=== PATIENT | female | born 1930 | race Caucasian/White ===

== ENCOUNTER 2017-08-07 18:58 | Emergency (ER) ==
[2017-08-07] MEDS ORDERED: TYLENOL PO STA (19:12)
--- NOTE | 2017-08-07 19:15 | ED.PDOC ---
General ED Provider: Dr. JUSTIN PEÑA Chief Complaint: Fall Stated Complaint: Patient is an 86 year old who states she fell on gravel driveway. She hit left side of forehead/eye on driveway. Denies any loss of conciousness. Has ozzing of blood from the forehead which does not stop bleeding after pressure.She is on coumadin. Also complains of pain to both shoulders, left worse than right. Time Seen by Physician: 19:13 Mode of Arrival: Wheelchair Information Source: Patient Exam Limitations: No limitations Nursing and Triage Documentation Reviewed and Agree: Yes Review of Systems - Review Of Systems Constitutional: Reports: No symptoms Respiratory: Reports: No symptoms Cardiac: Reports: No symptoms GI: Reports: No symptoms : Reports: No symptoms Musculoskeletal: Reports: Joint pain Skin: Reports: Bruising Neurological: Reports: Anxiety All Other Systems: Reviewed and Negative Past Medical History - Past Medical History Endocrine: Reports: Dyslipidemia Cardiovascular: Reports: Hypertension Respiratory: Reports: COPD Hematological: Reports: None Gastrointestinal: Reports: None Genitourinary: Reports: None Neuro/Psych: Reports: None Musculoskeletal: Reports: Arthritis 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 Last Menstrual Period: post menopausal Other Pertinent Past Medical History: 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 - Surgical History General Surgical History: Reports: Orthopedic (Bilateral ankle surgery.), Other (Left) - Family History Family History: Reports: Unknown - Social History Smoking Status: Never smoker Hx Substance Use: No Alcohol Screening: None - Immunizations Tetanus Shot up to Date: Yes Physical Exam - Physical Exam Appearance: Ill-appearing Pain Distress: Moderate Eyes: TERI ENT: Ears normal, Nose normal, Oropharynx normal Neck: Supple Respiratory: Airway patent, Breath sounds clear, Breath sounds equal, Respirations nonlabored Cardiovascular: RRR, Pulses normal, No rub, No murmur GI/: Soft, Nontender, No masses, Bowel sounds normal, No Organomegaly Musculoskeletal: Limited ROM (Left shoulder due to pain ) Skin: Warm, Dry Neurological: Sensation intact Psychiatric: Anxious Interpretation - Radiology Interpretation Radiology Interpretation By: Radiologist Radiology Results: Positive (Bilateral rib fractures.) Exam Interpreted: CT Scan Radiology Interpretation By: Radiologist Radiology Results: Positive Exam Interpreted: Other (mildly displaced distal clavicular fracture) Procedures - Laceration/Wound Repair Left Reading Wound Description: Irregular Wound Length (cm): 2 cm Wound Width: 0.2 Wound Depth: 0.5 Wound Explored: Clean Wound Prep: Hibiclens Anesthesia: Lidocaine Wound Debrided: Minimal Undermining: Minimal Wound Margins: Flaps aligned Wound Repaired With: Sutures (5) Suture Size and Type: 5.0 prolene Number of Sutures: 5 Left Forhead Wound Description: Skin tear Wound Length (cm): 0.5 Wound Explored: Clean Wound Repaired With: Steri-strips Critical Care Note - Critical Care Note Total Time (mins): 0 Course - Course Orders, Labs, Meds: Lab Review 08/07/17 19:16 PT 22.2 H INR 2.23 Orders Category Date Time Status Shoulder immobilizer [ED SPLINT APPLICATION] .ONCE EMERGENCY 08/07/17 22:06 Active PT WITH INR Stat LAB 08/07/17 19:16 Completed Acetaminophen [Tylenol] MEDS 08/07/17 19:12 Discontinued 1,000 mg PO ONCE STA Diphth,Pertuss(Acell),Tet Vac [Boostrix] MEDS 08/07/17 20:52 Discontinued 0.5 ml IM .ONCE ONE Ed After Hour Supply Med [Ed After Hours Supply Med MEDS 08/07/17 21:55 Discontinued Sent Home] 1 each PO ONCE ONE Hydrocodone Bit/Acetaminophen [[place] 5-325] MEDS 08/07/17 22:00 Discontinued 2 tab .ROUTE .STK-MED ONE Lidocaine HCl/Pf [Lidocaine HCl 1% Sdv] MEDS 08/07/17 20:27 Discontinued 5 ml .ROUTE .STK-MED ONE Lidocaine HCl/Pf [Lidocaine HCl 1% Sdv] MEDS 08/07/17 20:26 Discontinued 5 ml SUBCUT ONCE STA Tetanus, Diphtheria Tox,Adult [Tetanus Diphtheria MEDS 08/07/17 20:49 Discontinued Toxoids] 0.5 ml IM .ONCE ONE CT CERVICAL SPINE W/O CONTRAST Stat RADS 08/07/17 19:[address] CHEST W/O CONTRAST Stat RADS 08/07/17 19:[address] HEAD W/O CONTRAST Stat RADS 08/07/17 19:[address] MAXILLOFACIAL W/O CONTRAST Stat RADS 08/07/17 19:12 Completed SHOULDER, LEFT MIN 2V Routine RADS 08/07/17 19:36 Completed SHOULDER, RIGHT MIN 2V Routine RADS 08/07/17 19:36 Completed Medications Discontinued Medications Generic Name Dose Route Start Last Admin Trade Name Freq PRN Reason Stop Dose Admin Acetaminophen 1,000 mg 08/07/17 19:12 08/07/17 20:10 Tylenol PO 08/07/17 19:13 1,000 mg ONCE STA Administration Diphtheria/Pertussis/Tetanus Vacc 0.5 ml 08/07/17 20:52 08/07/17 21:01 Boostrix IM 08/07/17 20:53 0.5 ml .ONCE ONE Administration Lidocaine HCl 5 ml 08/07/17 20:26 08/07/17 20:40 Lidocaine Hcl 1% Sdv SUBCUT 08/07/17 20:27 5 ml ONCE STA Administration Miscellaneous Information 1 each 08/07/17 21:55 08/07/17 22:18 Ed After Hours Supply Med Sent Home PO 08/07/17 21:56 Not Given ONCE ONE Protocol Tetanus/Diphtheria Toxoids 0.5 ml 08/07/17 20:49 08/07/17 20:54 Tetanus Diphtheria Toxoids IM 08/07/17 20:50 Not Given .ONCE ONE Vital Signs: Temp Pulse Resp BP Pulse Ox 08/07/17 18:58 98.7 F 89 20 151/91 H 91 L Departure - Departure Time of Disposition: 21:56 Disposition: HOME SELF-CARE Discharge Problem: Falls, Contusion Ribs, multiple fractures Qualifiers: Encounter type: initial encounter Fracture type: closed Laterality: bilateral Qualified Code(s): S22.43XA - Multiple fractures of ribs, bilateral, initial encounter for closed fracture Clavicular fracture, closed, acromial end Qualifiers: Encounter type: initial encounter Fracture alignment: displaced Laterality: left Qualified Code(s): S42.032A - Displaced fracture of lateral end of left clavicle, initial encounter for closed fracture Instructions: Clavicle Fracture (ED), Laceration (ED), Rib Fracture (ED), Contusion in Adults (ED) Condition: Fair Pt referred to PMD for follow-up: Yes Additional Instructions: Have sutures removed in 7-10 days Take pain medications as needed Follow up with PCP in 3 days Prescriptions: Hydrocodone/Acetaminophen [[place] 5-325 Tablet] 1 tab PO Q6HR PRN #12 tablet PRN Reason: PAIN Allergies/Adverse Reactions: Allergies Sulfa (Sulfonamide Antibiotics) Adverse Reaction (Verified 08/07/17 19:13) Home Medications: Ambulatory Orders Aspirin [Aspirin EC] 81 mg PO BEDTIME 08/07/17 Calcium Carbonate/Vitamin D3 [Calcium 600-Vit D3 800 Caplet] 1 tab PO DAILY 08/13 Diltiazem HCl [Cartia Xt] 120 mg PO DAILY 08/07/17 Hydrocodone/Acetaminophen [[place] 5-325 Tablet] 1 tab PO Q6HR PRN #12 tablet 08/13 Ipratropium/Albuterol Neb [Duoneb] 1 vial INH BID 08/07/17 Lisinopril 5 mg PO DAILY 08/07/17 Metformin HCl 500 mg PO BID 08/07/17 Metoprolol Succinate 25 mg PO BID 08/07/17 Olanzapine 5 mg PO BEDTIME 08/07/17 Pravastatin Sodium [Pravachol] 40 mg PO BEDTIME 08/07/17 Venlafaxine HCl [Venlafaxine HCl ER] 150 mg PO DAILY 08/07/17 Warfarin Sodium [Coumadin] 4 mg PO DAILY 08/07/17
[2017-08-07 19:22] VITALS: BP 151/91; TEMP 98.7; BMI 40.7
--- NOTE | 2017-08-07 19:32 | CT ---
EXAM: CT brain without contrast HISTORY: Head trauma with left frontal hematoma TECHNIQUE: CT of the brain without intravenous contrast FINDINGS: There is no acute hemorrhage midline shift or mass effect. No hydrocephalus or abnormal e xtra-axial fluid collection. Generalized involutional atrophy, mild. Chronic microvascular changes of the white matter tracts, moderate. Hyperostosis frontalis is present. No acute abnormality of the bony cranium. The visualized paranasal sinuses are clear. Left frontal scalp swelling. IMPRESSION: 1. No acute intracranial abnormality. Chronic changes as described. 2. Left frontal scalp swelling without underlying bony abnormality.
--- NOTE | 2017-08-07 19:42 | CT ---
EXAM: CT maxillofacial region without contrast History: Facial trauma. Technique: Multiplanar CT images through the maxillofacial region were obtained without the administ ration of IV contrast Findings: Small to moderate left cheek hematoma and left frontal scalp hematoma. Orbits are intact. Atherosclerotic vascular calcifications. No acute fracture or dislocation. Paranasal sinuses and mastoid air cells are clear. Nasal septum is bowed to the right. Bilateral ostiomeatal units are no t occluded. Osteopenia. Degenerative changes of the cervical spine. Impression: 1. No acute fracture. 2. Clear paranasal sinuses. 3. Small to moderate left cheek soft tissue hematoma and left frontal scalp hematoma.
--- NOTE | 2017-08-07 19:56 | CT ---
EXAM: CT of the cervical spine without contrast History: Head and neck trauma. Technique: Multiplanar CT images through the cervical spine were obtained without the administration of IV contrast Findings: Atherosclerotic vascular calcifications. There are mildly displaced fractures of the righ t first and second ribs and there is a nondisplaced fracture of the left second rib. Osteopenia. No acute fracture or subluxation of the cervical spine. Moderate to severe disc space n arrowing at C5-6 with endplate sclerosis and osteophyte formation. Mild to moderate disc space narro wing seen elsewhere. Bony spinal canal is not significantly compromised. Multilevel bilateral bony neural foraminal narrowing secondary to uncovertebral and facet hypertrophy. Impression: 1. No acute osseous abnormality of the cervical spine. 2. Mildly displaced fractures of the right first and second ribs and nondisplaced fracture of the le ft second rib
--- NOTE | 2017-08-07 20:01 | DI ---
EXAM: Three views of the right shoulder. History: Right shoulder trauma. Findings: Osteopenia. Moderate to severe narrowing of the right AC joint. Mild to moderate narrowi ng of the right glenohumeral joint. Sclerosis and cystic change involving the superior lateral aspec t of the humeral head. Mildly displaced right first and second rib fractures. Calcification seen sylvia g the course of the rotator cuff tendons Impression: 1. Right first and second rib fractures. 2. 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 4. Rotator cuff disease with calcific tendonitis.
--- NOTE | 2017-08-07 20:05 | DI ---
EXAM: Four views of the left shoulder. History: Left shoulder trauma. Findings: Osteopenia. Mild to moderately displaced comminuted fracture of the distal left clavicle. No dislocation. Calcification seen along the course of the left rotator cuff tendons. Moderate na rrowing of the left AC joint. Mildly displaced left first, second and fifth rib fractures. Impression: 1. Distal left clavicular fracture. 2. Left rib fractures. 3. Calcific tendonitis of the left rotator cuff tendons
--- NOTE | 2017-08-07 20:11 | CT ---
Exam: CT of the chest without contrast History: Bilateral shoulder pain status post fall with chest pain Technique: [address] of the chest without intravascular contrast FINDINGS: The lung windows show no infiltrative opacities. No pleural fluid or pneumothorax. No casarez spicious nodules or masses. Atherosclerotic calcification of the aorta without aneurysm. No patholo gic lymph node enlargement mediastinum. Right first and second lateral rib fractures are nondisplace d. The scapula is intact. The proximal humerus and clavicle is intact. Prior left mastectomy. Lef t posterior nondisplaced 2nd and 5th rib fractures. The second rib is also fractured anteriorly. Sc apula and humerus are intact. Impression: 1. Right first and second lateral rib fractures, nondisplaced. Left second and fifth rib fractures, nondisplaced.
[2017-08-07 20:15] LABS: PROTHROMBIN TIME 22.2 SEC (9.3-11.0)
[2017-08-07] MEDS ORDERED: LIDOCAINE HCL 1% SDV SUBCUT STA (20:26)
[2017-08-07] MEDS ORDERED: LIDOCAINE HCL 1% SDV ONE (20:27)
[2017-08-07] MEDS ORDERED: TETANUS DIPHTHERIA TOXOIDS IM ONE (20:49)
[2017-08-07] MEDS ORDERED: BOOSTRIX IM ONE (20:52)
[2017-08-07] MEDS ORDERED: ED AFTER HOURS SUPPLY MED SENT HOME PO ONE (21:55)
[2017-08-07] MEDS ORDERED: NORCO 5-325 ONE (22:00)
== END 2017-08-07 22:29 | disposition home or self-care (01) ==
LOC: ED 18:58
DX: S01.81XA Laceration without foreign body of other part of head, initial encounter (principal); S22.43XA Multiple fractures of ribs, bilateral, initial encounter for closed fracture; S42.032A Displaced fracture of lateral end of left clavicle, initial encounter for closed fracture; W19.XXXA Unspecified fall, initial encounter; Z79.01 Long term (current) use of anticoagulants
CPT/HCPCS: 36415; 85610; 90715; 96372; 99283

== ENCOUNTER 2019-01-05 13:43 | Outpatient (CLI) ==
--- NOTE | 2019-01-05 14:30 | CT ---
EXAM: CT of the head without contrast History: Altered mental status, weakness, numbness in the right leg. Comparison: Head CT 08/07/2017 Technique: Multiplanar CT images through the head were obtained without the administration of IV con trast Findings: The visualized paranasal sinuses and mastoid air cells are clear in general. No acute sloan varial abnormalities. Incidental hyperostosis frontalis again noted. Intracranially the ventricular and cisternal spaces are normal in size, shape and configuration for a patient of this age. No midline shift and no hydrocephalus. No acute intracranial hemorrhage or ab normal extraaxial fluid collections. Periventricular and subcortical white matter hypodensities. St able area of encephalomalacia within the right occipital lobe compatible with old infarction. There is a new small age indeterminate right basal ganglial lacunar infarction. Atherosclerotic vascular c alcifications. Impression: 1. No acute intracranial hemorrhage. 2. 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 Recommend further evaluation with bra in MRI. 3. 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
== END 2019-01-05 13:44 | disposition home or self-care (01) ==
LOC: RAD 13:43
PROVIDERS: ATTEND Family Medicine
DX: R53.1 Weakness (principal)